=== PATIENT | female | born 1995 | race Hispanic/Latino ===

== ENCOUNTER 2024-06-17 18:48 | Inpatient (IN) | payer OTHER ==
[~2024-06-17] VITALS: Ht 170.2 cm; Wt 77.0 kg
[2024-06-17] MEDS ORDERED: CYCL-707 PO (19:21)
[2024-06-17] MEDS ORDERED: PROP60TA14 PO (19:21)
[2024-06-17] MEDS ORDERED: DICL35CA2 PO (19:21)
[2024-06-17] MEDS ORDERED: WELLTAB38 PO (19:21)
[2024-06-17] MEDS ORDERED: PRAZ5CAP PO (19:21)
[2024-06-17] MEDS ORDERED: TRAZ-252 PO (19:21)
[2024-06-17 20:19] LABS: HEMATOCRIT 46.5 % (42.0-52.0); HEMOGLOBIN 15.2 g/dl (13.5-17.5); MEAN CORPUSCULAR HEMOGLOBIN 30.1 pg (27.0-33.0); MEAN CORPUSCULAR HGB CONC 32.7 g/dl (32.0-36.5); MEAN CORPUSCULAR VOLUME 92.1 fl (80.0-96.0); PLATELET COUNT, AUTOMATED 290 10^3/uL (150-450); RED BLOOD COUNT 5.05 10^6/uL (4.30-6.10); WHITE BLOOD COUNT 11.8 10^3/uL (4.0-10.0)
[2024-06-17 20:32] LABS: AMPHETAMINES LEVEL URINE NEGATIVE (NEGATIVE); BENZODIAZEPINES URINE NEGATIVE (NEGATIVE)
[2024-06-17 20:33] LABS: BARBITURATES URINE NEGATIVE (NEGATIVE); CANNABINOIDS URINE NEGATIVE (NEGATIVE); COCAINE METABOLITE URINE NEGATIVE (NEGATIVE); METHADONE URINE NEGATIVE (NEGATIVE); OPIATES URINE NEGATIVE (NEGATIVE); PHENCYCLIDINE URINE NEGATIVE (NEGATIVE)
[2024-06-17 20:37] LABS: ALBUMIN 3.9 G/DL (3.2-5.2); ALKALINE PHOSPHATASE 69 U/L (40-129); ALT/SGPT 52 U/L (7.0-40); AST/SGOT 36 U/L (<34); BILIRUBIN,DIRECT < 0.1 MG/DL (<0.4); BILIRUBIN,TOTAL 0.3 MG/DL (0.3-1.2); BLOOD UREA NITROGEN 9 MG/DL (9-23); CALCIUM LEVEL 9.4 MG/DL (8.5-10.1); CARBON DIOXIDE LEVEL 25 MMOL/L (20-31); CHLORIDE LEVEL 108 MMOL/L (98-107); CREATININE FOR GFR 0.81 MG/DL (0.70-1.30); GLOMERULAR FILTRATION RATE > 60.0 (>60); GLUCOSE, FASTING 89 MG/DL (60-100); POTASSIUM SERUM 3.7 MMOL/L (3.5-5.1); SALICYLATE LEVEL < 3.0 MG/DL (<30); SODIUM LEVEL 142 MMOL/L (136-145); TOTAL PROTEIN 6.9 G/DL (5.7-8.2)
[2024-06-17 20:39] LABS: THYROID STIMULATING HORMONE 1.085 uIU/ML (0.55-4.78)
[2024-06-17] MEDS ORDERED: MAALOX 30 ML SUSP *UDC PO PRN (23:20)
[2024-06-17] MEDS ORDERED: OLANZapine 5 MG TAB PO PRN (23:20)
[2024-06-17] MEDS ORDERED: ACETAMINOPHEN 325 MG TAB PO PRN (23:20)
[2024-06-17] MEDS ORDERED: IBUPROFEN 400MG TAB PO PRN (23:20)
[2024-06-17] MEDS ORDERED: MOM 30ML SUSPENSION UDC PO PRN (23:20)
[2024-06-17] MEDS ORDERED: diphenhydrAMINE 25MG CAP PO PRN (23:20)
[2024-06-17] MEDS ORDERED: LORazepam 2 MG TAB PO PRN (23:20)
[2024-06-17] MEDS ORDERED: PRAZ1CAP PO (23:21)
[2024-06-17] MEDS ORDERED: OMEP-173 PO (23:21)
[2024-06-17] MEDS ORDERED: LAMO25TA4 PO (23:21)
[2024-06-17] MEDS ORDERED: HYDR50TA70 PO (23:21)
[2024-06-17] MEDS ORDERED: PROP20TA72 PO (23:21)
[2024-06-17] MEDS ORDERED: ZOLO100T PO (23:21)
[2024-06-17] MEDS ORDERED: TEST200I14 IM (23:21)
[2024-06-17] MEDS ORDERED: BUPR-597 PO (23:21)
[2024-06-17] MEDS ORDERED: HOME MED LIST COMPLETE! XX SCH (23:25)
[2024-06-18 01:44] VITALS: BP 123/76; TEMP 97.2; O2SAT 98
[2024-06-18] MEDS: THIAMINE 100 MG TAB PO SCH (02:03)
[2024-06-18 06:19] VITALS: BP 150/84; TEMP 97.8; O2SAT 98
[2024-06-18 06:37] VITALS: BP 150/84
[2024-06-18] MEDS: NICOTINE 14 MG/24 HR TRANSDERMAL TD SCH (09:00)
[2024-06-18] MEDS: MULTIVITAMINS/MINERALS THERAP 1 TAB PO SCH (09:00)
[2024-06-18] MEDS: FOLIC ACID 1MG TAB PO SCH (09:01)
[2024-06-18] MEDS: lamoTRIgine 25MG TAB PO SCH (13:12)
[2024-06-18 14:00] VITALS: BP 133/68
[2024-06-18] MEDS: CYCLOBENZAPRINE 10MG TABLET PO ONE (14:57)
[2024-06-18] MEDS: ACETAMINOPHEN 500 MG TAB PO ONE (15:08)
[2024-06-18] MEDS: PROPRANOLOL 20 MG TAB PO SCH (15:09)
[2024-06-18 15:12] VITALS: BP 133/68; TEMP 99; O2SAT 98
[2024-06-18 16:13] LABS: HEPATITIS B SURFACE ANTIGEN NEGATIVE (NEGATIVE)
[2024-06-18] MEDS: buPROPion **XL** TABLET 150MG (WELLBUTRIN XL) PO SCH (16:17)
[2024-06-18 16:35] LABS: HEPATITIS B CORE ANTIBODY IGM NEGATIVE (NEGATIVE); HEPATITIS C VIRUS ABY INDEX < 0.02 INDEX (<0.8)
[2024-06-18] MEDS: IBUPROFEN 400MG TAB PO ONE (17:57)
[2024-06-18] MEDS: traZODone 50 MG TAB PO PRN (21:05)
[2024-06-18] MEDS: PRAZOSIN 1 MG CAP PO SCH (21:05)
[2024-06-18] MEDS: SERTRALINE 100 MG TAB PO SCH (21:05)
[2024-06-19] VITALS (7 sets, daily range): BP systolic 115–144; BP diastolic 57–73; TEMP 97.4–98.8; O2SAT 98
[2024-06-19] MEDS: PRAZOSIN 1 MG CAP PO SCH (08:46)
[2024-06-19] MEDS: CYCLOBENZAPRINE 5MG TABLET PO PRN (20:47)
[2024-06-20 04:58] VITALS: BP 128/68
[2024-06-20 08:50] VITALS: BP 125/71
[2024-06-21 14:43] LABS: ANA PATTERN Nuclear, Homogeneous (NEGATIVE); ANA SCREEN, IFA POSITIVE (NEGATIVE)
== END 2024-06-20 14:06 | disposition home or self-care (01) | DRG 882 ==
LOC: M ED 18:48 → M ED INP 23:16 → EDSEX 23:16 → M PSY 06-18 01:22
PROVIDERS: ADMIT Psychiatry & Neurology Neurology; ATTEND Psychiatry & Neurology Neurology
DX: F43.10 Post-traumatic stress disorder, unspecified (principal); F17.200 Nicotine dependence, unspecified, uncomplicated; F32.A Depression, unspecified; F41.9 Anxiety disorder, unspecified; M26.602 Left temporomandibular joint disorder, unspecified; M25.572 Pain in left ankle and joints of left foot; R00.0 Tachycardia, unspecified; G89.29 Other chronic pain; I10 Essential (primary) hypertension; Z79.899 Other long term (current) drug therapy; Z88.2 Allergy status to sulfonamides; Z71.6 Tobacco abuse counseling

== ENCOUNTER → 2024-09-02 | Outpatient (REF) | payer MEDICAID, OTHER ==
[~2024-09-02] MED LIST: BUPR-597 PO; CYCL-707 PO; DICL35CA2 PO; HYDR50TA70 PO; LAMO25TA4 PO; OMEP-173 PO; PRAZ1CAP PO; PRAZ5CAP PO; PROP20TA72 PO; PROP60TA14 PO; TEST200I14 IM; TRAZ-252 PO; WELLTAB38 PO; ZOLO100T PO
[2024-09-03 19:23] LABS: APPEARANCE, URINE CLEAR (CLEAR); BACTERIA, URINE AUTO NEGATIVE (NEGATIVE); BILIRUBIN, URINE AUTO NEGATIVE (NEGATIVE); BLOOD, URINE BLOOD NEGATIVE (NEGATIVE); COLOR, URINE YELLOW (YELLOW); GLUCOSE, URINE (UA) AUTO NEGATIVE (NEGATIVE); KETONE, URINE AUTO NEGATIVE (NEGATIVE); LEUKOCYTE ESTERASE, URINE AUTO NEGATIVE (NEGATIVE); MUCUS, URINE SMALL (NEGATIVE); NITRITE, URINE AUTO NEGATIVE (NEGATIVE); PROTEIN, URINE AUTO NEGATIVE (NEGATIVE); RBC, URINE AUTO 0 /HPF (0-3); SQUAMOUS EPITHELIAL CELL UR AU 1 /HPF (0-6); UROBILINOGEN, URINE AUTO 0.2 mg/dL (0.0-2.0); WBC, URINE AUTO 1 /HPF (0-3)
[2024-09-20 14:51] LABS: GC DNA AMPLIFICATION NEGATIVE (NEGATIVE); Trichomonas vaginalis (AMP) NOT DETECTED (NEGATIVE)
== END ==
LOC: M LAB REF 19:21
PROVIDERS: ATTEND Physician Assistant Medical
DX: Z20.2 Contact with and (suspected) exposure to infections with a predominantly sexual mode of transmission (principal)

== ENCOUNTER 2025-03-13 02:36 | Emergency (ER) | payer OTHER ==
[~2025-03-13] VITALS: Ht 170.2 cm; Wt 83.0 kg
[~2025-03-13 02:36] MED LIST changes: -BUPR-597 PO; +BUPR-766 PO; +LAMO-18 PO; -LAMO25TA4 PO
[2025-03-13 02:37] VITALS: BP 122/71; TEMP 98.1; O2SAT 98
== END 2025-03-13 03:42 | disposition left against medical advice (07) ==
LOC: M ED 02:36
DX: Z53.21 Procedure and treatment not carried out due to patient leaving prior to being seen by health care provider (principal)

== ENCOUNTER → 2025-05-19 | Outpatient (CLI) | payer OTHER ==
[2025-05-19 14:58] LABS: BASO # 0.1 10^3/uL (0.0-0.2); BASO % 0.8 % (0.0-1.0); EOS # 0.3 10^3/uL (0.0-0.5); EOS % 4.1 % (0.0-3.0); LYMPH # 2.6 10^3/uL (1.5-5.0); LYMPH % 38.6 % (24.0-44.0); MONO # 0.5 10^3/uL (0.0-0.8); MONO % 7.2 % (2.0-8.0); NEUTROPHILS # 3.3 10^3/uL (1.5-8.5); NEUTROPHILS % 49.1 % (36.0-66.0); PLATELET COUNT, AUTOMATED 306 10^3/uL (150-450)
[2025-05-19 15:04] LABS: ALT/SGPT 34 U/L (7.0-40); AST/SGOT 29 U/L (<34); CALCIUM LEVEL 9.1 MG/DL (8.5-10.1); CARBON DIOXIDE LEVEL 30 MMOL/L (20-31); CHLORIDE LEVEL 103 MMOL/L (98-107); CHOLESTEROL LEVEL 175 MG/DL (<200); CHOLESTEROL RISK RATIO 3.82 (<5); CREATININE FOR GFR 0.93 MG/DL (0.70-1.30); GLOMERULAR FILTRATION RATE > 90.0 (>60); LDL CHOLESTEROL 105.3 MG/DL (<100); NON-HDL-C 129.3 MG/DL; POTASSIUM SERUM 4.5 MMOL/L (3.5-5.1); SODIUM LEVEL 141 MMOL/L (136-145); TRIGLYCERIDES LEVEL 120 MG/DL (<150)
[2025-05-19 15:53] LABS: ESTIMATED AVERAGE GLUCOSE 108.0 MG/DL (60-110)
== END ==
LOC: M WUC 10:59
PROVIDERS: ATTEND Internal Medicine
DX: Z00.00 Encounter for general adult medical examination without abnormal findings (principal); F41.3 Other mixed anxiety disorders

== ENCOUNTER 2025-06-08 06:25 | Emergency (ER) | payer OTHER ==
[~2025-06-08] VITALS: Ht 170.2 cm; Wt 81.8 kg
[2025-06-08] MEDS: ACETAMINOPHEN 500 MG TAB PO ONE (09:22)
[2025-06-08 11:08] VITALS: BP 114/59; TEMP 97; O2SAT 100
== END 2025-06-08 11:22 | disposition home or self-care (01) ==
LOC: M ED 06:25
DX: S09.90XA Unspecified injury of head, initial encounter (principal); V47.5XXA Car driver injured in collision with fixed or stationary object in traffic accident, initial encounter; Y92.9 Unspecified place or not applicable; Y93.9 Activity, unspecified; Y99.9 Unspecified external cause status